=== PATIENT | female | born 1955 | race Hispanic/Latino ===

== ENCOUNTER 2021-02-21 21:28 | Emergency (ER) | payer SELFPAY ==
[2021-02-21] MEDS ORDERED: Acetaminophen 500 MG TAB ONE (22:05)
[2021-02-21] MEDS ORDERED: Ketorolac Tromethamine 30 MG/ML VIAL ONE (22:05)
[2021-02-21] MEDS ORDERED: Metoclopramide 10 MG/10 ML UDCUP ONE ×2 (22:05→22:08)
[2021-02-21] MEDS ORDERED: diphenhydrAMINE 50 MG/ML VIAL ONE ×2 (22:05→22:07)
[2021-02-21] MEDS ORDERED: Metoclopramide HCl 10 MG/2 ML VIAL ONE (22:09)
[2021-02-21 22:17] LABS: #Eosinphils 0.1 thou/uL (0.0-0.7); #Lymphocytes 1.2 thou/uL (1.20-3.40); #Monocytes 0.4 thou/uL (0.11-0.59); #Neutrophils 7.2 thou/uL (1.40-6.50); %Basophils 0.2 % (0.0-1.0); %Eosinophils 1.1 % (0.0-10.0); %Lymphocytes 13.8 % (21.0-51.0); %Monocytes 4.4 % (0.0-10.0); %Neutrophils 80.6 % (42.0-75.0); Hemoglobin 13.7 g/dL (12.0-16.0); Mean Corpuscular HGB CONC 33.1 g/dL (32.0-36.0); Mean Corpuscular Hemoglobin 31.1 pg (27.0-31.0); Platelet Count 211 thou/uL (130-400); RBC Distribution Width 13.5 % (11.5-14.5); Red Blood Cell (RBC) Count 4.41 mill/uL (4.20-5.40); White Blood Cell (WBC) Count 8.9 thou/uL (4.8-10.8)
[2021-02-21 22:34] LABS: ALT (SGPT) 97 U/L (8-55); AST (SGOT) 48 U/L (5-34); Albumin 4.3 g/dL (3.4-4.8); Alkaline Phosphatase 133 U/L (40-110); Anion Gap 13 mmol/L (10-20); BUN (Urea Nitrogen) 11 mg/dL (9.8-20.1); Bilirubin, Total 0.5 mg/dL (0.2-1.2); CK (CPK) 77 U/L (29-168); Calc. Creatinine Clearance 0 mL/min (70-130); Calcium 9.2 mg/dL (7.8-10.44); Carbon Dioxide 29 mmol/L (23-31); Chloride 104 mmol/L (98-107); Globulin 3.5 g/dL (2.4-3.5); Glucose 126 mg/dL (80-115); Potassium 3.6 mmol/L (3.5-5.1); Protein, Total 7.8 g/dL (5.8-8.1); Sodium 142 mmol/L (136-145)
== END 2021-02-21 23:06 | disposition home or self-care (01) ==
LOC: ERS 21:28
DX: G43.909 Migraine, unspecified, not intractable, without status migrainosus (principal); R07.89 Other chest pain; E78.5 Hyperlipidemia, unspecified; I10 Essential (primary) hypertension; M19.90 Unspecified osteoarthritis, unspecified site; R73.03 Prediabetes; Z86.73 Personal history of transient ischemic attack (TIA), and cerebral infarction without residual deficits
CPT/HCPCS: 70450; 71045; 80053; 82550; 84484; 85025; 93005; 96365; 96375; J1200; J1885; J2765

== ENCOUNTER 2024-11-05 12:47 | Outpatient (CLI) | payer MEDICARE, MEDICAID | END 2024-11-05 12:48 | disposition home or self-care (01) | LOC: BICMAMMO 12:47 | DX: Z12.31 Encounter for screening mammogram for malignant neoplasm of breast (principal); Z80.3 Family history of malignant neoplasm of breast | CPT/HCPCS: 77063; 77067 ==

== ENCOUNTER 2025-11-06 13:24 | Outpatient (CLI) | payer MEDICARE, MEDICAID | END 2025-11-06 13:25 | disposition home or self-care (01) | LOC: BICMAMMO 13:24 | DX: Z12.31 Encounter for screening mammogram for malignant neoplasm of breast (principal); Z80.3 Family history of malignant neoplasm of breast | CPT/HCPCS: 77063; 77067 ==